=== PATIENT | male | born 1950 | race Asian ===

== ENCOUNTER 2017-10-17 23:54 | Emergency (ER) | payer MEDICARE, OTHER ==
[~2017-10-17] VITALS: Ht 162.6 cm; Wt 59.0 kg
[~2017-10-17 23:54] MED LIST: ASPI81TA33 PO; LOSA50TA37 PO; METF500T4 PO
[2017-10-18 00:47] LABS: BASOPHILS % (AUTO) 1.2 % (0.0-2.0); EOSINOPHILS % (AUTO) 4.8 % (1.0-6.0); HEMATOCRIT 41.7 % (41-53); HEMOGLOBIN 13.9 g/dL (13.5-17.5); LYMPHOCYTES # (AUTO) 3.1 K/uL (1.0-4.8); LYMPHOCYTES % (AUTO) 31.1 % (22.0-44.0); MEAN CORPUSCULAR HGB CONC 33.3 G/dL (31.0-37.0); MEAN CORPUSCULAR VOLUME 84 fL (80-100); MONOCYTES # (AUTO) 0.6 K/uL (0.1-1.0); MONOCYTES % (AUTO) 6.1 % (2.0-9.0); NEUTROPHILS # (AUTO) 5.7 K/uL (1.8-7.7); NEUTROPHILS % (AUTO) 56.8 % (40.0-70.0); PLATELET COUNT (AUTO) 221 K/uL (150-450); RED BLOOD CELL COUNT(AUTO) 4.95 MIL/uL (4.50-5.90); RED CELL DISTRIBUTION WIDTH 12.9 % (11.5-14.5)
[2017-10-18 00:49] LABS: ANION GAP 10 mmol/L (8-16); CALCIUM, TOTAL 9.1 mg/dL (8.8-10.5); CARBON DIOXIDE 29 mmol/L (22-29); CHLORIDE 102 mmol/L (98-107); CREATININE 1.07 mg/dL (0.60-1.30); GLOMERULAR FILTR. RATE CALC > 60 mL/min (>60); GLUCOSE,RANDOM 156 mg/dL (70-110); POTASSIUM 3.9 mmol/L (3.5-5.1); SODIUM SERUM 141 mmol/L (136-145); UREA NITROGEN, BLOOD 14 mg/dL (7-18)
[2017-10-18 00:54] LABS: ALANINE AMINOTRANSFERASE 19 U/L (12-78); ALBUMIN 3.5 g/dL (3.4-5.0); ALKALINE PHOSPHATASE 76 U/L (46-116); ASPARTATE AMINOTRANSFERASE 15 U/L (15-37); BILIRUBIN,TOTAL 0.2 mg/dL (0.1-1.0); TOTAL PROTEIN, SERUM 6.9 g/dL (6.4-8.2)
[2017-10-18] MEDS ORDERED: CloNIDine HCL 0.1 MG TABLET PO ONE (04:00)
[2017-10-18 05:27] VITALS: BP 142/82
== END 2017-10-18 05:28 | disposition home or self-care (01) ==
LOC: EMS 23:55
DX: I10 Essential (primary) hypertension (principal); R00.2 Palpitations; R06.02 Shortness of breath; E11.9 Type 2 diabetes mellitus without complications; Z87.891 Personal history of nicotine dependence
CPT/HCPCS: 82962; 93005; 99285

== ENCOUNTER 2019-11-05 07:50 | Emergency (ER) | payer OTHER ==
[~2019-11-05] VITALS: Ht 162.6 cm; Wt 63.6 kg
[~2019-11-05 07:50] MED LIST changes: -ASPI81TA33 PO; +ASPI81TA87 PO; -LOSA50TA37 PO; +LOSA50TA65 PO; +METF-444 PO; -METF500T4 PO
[2019-11-05] MEDS ORDERED: FLUT16H NASAL (07:57)
[2019-11-05] MEDS ORDERED: AMLO5TAB66 PO (07:57)
[2019-11-05] MEDS ORDERED: ATOR20TA65 PO (07:57)
[2019-11-05] MEDS ORDERED: BENZONATATE 100 MG CAPSULE PO ONE (10:30)
[2019-11-05 11:30] VITALS: BP 148/67
== END 2019-11-05 12:21 | disposition home or self-care (01) ==
LOC: EMS 07:52
DX: J06.9 Acute upper respiratory infection, unspecified (principal); I10 Essential (primary) hypertension; E11.9 Type 2 diabetes mellitus without complications; Z87.891 Personal history of nicotine dependence; Z79.899 Other long term (current) drug therapy; Z79.82 Long term (current) use of aspirin; Z03.818 Encounter for observation for suspected exposure to other biological agents ruled out
CPT/HCPCS: 87635; 99406